=== PATIENT | female | born 1955 | race Caucasian/White ===

== ENCOUNTER 2019-04-03 15:05 | Emergency (ER) | payer BC ==
[~2019-04-03] VITALS: Ht 160 cm; Wt 120.0 kg
[2019-04-03 16:36] LABS: HEMATOCRIT 42.3 % (37.0-47.0); HEMOGLOBIN 13.6 g/dl (12.0-16.0); IMMATURE GRANULOCYTES 0.4 % (0.0-5.0); MEAN CELL VOLUME 92.6 fL CALC (80.0-100.0); MEAN CORPUSCULAR HGB 29.8 pG CALC (26.0-32.0); MEAN CORPUSCULAR HGB CONC 32.2 g/L CALC (32.0-36.0); NEUT# 5.92 thou/uL (2.00-7.15); RED BLOOD COUNT 4.57 mill/uL (4.20-5.60); RED CELL DISTRI WIDTH 13.4 % (11.5-15.5)
[2019-04-03 16:54] LABS: ANION GAP 14 (6-22 (CALC)); BUN 9 mg/dL (8-23); BUN/CREATININE RATIO 14 (12-20 (CALC)); CARBON DIOXIDE 27 mmol/l (22-30); CHLORIDE 102 mmol/l (95-108); CREATININE 0.6 mg/dL (0.5-1.0); GFR > 60 ML/MIN (>=60 (CALC)); GFR FOR AFR.AMER. > 60 ML/MIN (>=60 (CALC)); POTASSIUM 4.3 mmol/l (3.5-5.1); SODIUM 138 mmol/l (137-146)
[2019-04-03] MEDS ORDERED: DOXY-CAPS100 MG PO (17:55)
[2019-04-03] MEDS ORDERED: PROAIR HFA108 MCG/AC PO (17:55)
[2019-04-03] MEDS ORDERED: PREDNISONE50 MG PO (17:55)
[2019-04-03 18:50] VITALS: BP 157/74
[2019-04-04] MEDS ORDERED: DOXY-CAPS100 MG PO (08:12)
[2019-04-04] MEDS ORDERED: PREDNISONE50 MG PO (08:12)
[2019-04-04] MEDS ORDERED: PROAIR HFA108 MCG/AC PO (08:12)
== END 2019-04-03 18:58 | disposition home or self-care (01) | DRG 153 ==
LOC: ED 15:05
PROVIDERS: Family Medicine
DX: J11.1 Influenza due to unidentified influenza virus with other respiratory manifestations (principal); I10 Essential (primary) hypertension; E03.9 Hypothyroidism, unspecified